=== PATIENT | female | born 1945 | race Caucasian/White ===

== ENCOUNTER 2022-10-11 08:40 | Emergency (ER) | payer MEDICARE, OTHER ==
[~2022-10-11] VITALS: Ht 172.7 cm; Wt 70.3 kg
--- NOTE | 2022-10-11 10:43 | Diagnostic Imaging Report ---
CLINICAL INDICATION: Patient fell on her left side on concrete. Patient with left hip pain. EXAMS: 1: X-ray of the pelvis (AP view) and x-ray of the left hip (AP and frog-leg views). 2: X-ray of the left femur, 4 views. 3: X-ray of the left knee, 3 views. COMPARISON: None. FINDINGS: X-rays of the pelvis, left hip, left femur, and left knee show no acute fracture or dislocation. There are small degenerative spurs involving the bilateral femoral head/neck junction regions. There are hypertrophic spurs involving the bilateral acetabular regions, right side more than left. 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 The sacroiliac joints show no significant abnormality. The sacrum and visualized lower lumbar spine are unremarkable. There are small spurs involving the patellofemoral and lateral compartments. There is at least mild medial compartment narrowing. There is no significant knee effusion. IMPRESSION: 1: X-rays of the pelvis, hips, left femur, and left knee show no acute fracture or dislocation. 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 Dictated by: Dictated on workstation # [id number]
--- NOTE | 2022-10-11 11:14 | ED Fall/Injury ---
General Chief Complaint: Lower Extremity Stated Complaint: FALL | LT LEG PAIN Nursing Triage Note: Pt come in by wheelchair with c/o left leg pain. Pt states she fell on concrete at 0730 due to catching right leg on planter. Pt denied hitting head and denies LOC. 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 oz. kg; 23.00 BMI Method: Progress/Results/Core Measures Results/Orders My Orders Orders - LINNETTE MCKEON DO Femur, Left, 2 Views (10/11/22 09:38) Knee, Left, 3 Views (10/11/22 09:38) Pelvis With Left Hip 2-3 Views (10/11/22 09:38) Vital Signs/I&O 10/11/22 09:15 Temp 35.9 Pulse 64 Resp 18 B/P (MAP) 149/69 (95) Pulse Ox 97 Blood Pressure Mean: 95 Diagnostic Imaging Comments XRAYS--PER RADIOLOGIST REPORTS AT 1110 Reviewed: Reviewed by Me Departure Impression Primary Impression: Fall from standing Additional Impression: LEFT HIP, THIGH AND KNEE CONTUSION Disposition: 01 HOME, SELF-CARE Condition: Stable Departure-Patient Inst. Decision time for Depature: 11:12 Referrals: MARCO ANTONIO GAINES DO (PCP/Family) Primary Care Physician Patient Instructions: Contusion (DC), Preventing Falls in Older Adults Add. Discharge Instructions: HOME, REST ACTIVITIES TOLERATED ICE TO SORE AREAS AT 20 MINUTE INTERVALS FOR THE FIRST 24 HOURS, THEN ALTERNATE ICE AND HEAT TO SORE AREAS AT 20 MINUTE INTERVALS TAKE TYLENOL AND MOTRIN NEEDED FOR PAIN FOLLOW UP WITH YOUR DR IN 4-5 DAYS IF NO BETTER, RETURN TO ER IF WORSE All discharge instructions reviewed with patient and/or family. Voiced understanding. LINNETTE MCKEON DO Oct 11, 2022 11:14
[2022-10-11 11:28] VITALS: BP 139/69
== END 2022-10-11 11:28 | disposition home or self-care (01) ==
LOC: EDUNIT# 08:40 → ER 08:44
DX: S70.02XA Contusion of left hip, initial encounter (principal); S80.02XA Contusion of left knee, initial encounter; S70.12XA Contusion of left thigh, initial encounter; W18.30XA Fall on same level, unspecified, initial encounter
CPT/HCPCS: 73552; 73562

== ENCOUNTER → 2022-11-04 | Outpatient (CLI) | payer MEDICARE | LOC: ORTHO 14:32 | PROVIDERS: ATTEND Orthopaedic Surgery | DX: S70.02XA Contusion of left hip, initial encounter (principal); X58.XXXA Exposure to other specified factors, initial encounter | CPT/HCPCS: 99202 ==